=== PATIENT | male | born 1975 | race Two or more races ===

== ENCOUNTER 2019-03-12 12:07 | Emergency (ER) | payer MEDICAID ==
[~2019-03-12] VITALS: Ht 170.2 cm; Wt 77.1 kg
--- NOTE | 2019-03-12 12:24 | NUR ---
ED Nurse Note: radiology notified of US order.
--- NOTE | 2019-03-12 12:31 | Emergency Room Report ---
History of Present Illness General Chief Complaint: Male Urogenital Problems Source: Patient Present Illness HPI Patient presents with complaints of increased discomfort to the right testicular area Patient reports that he has for a long time had somewhat larger size to the right testicle over the past several months he has felt increased swelling and discomfort Patient reports having a physical about one month ago Was recommended for ultrasound however has not had any procedures performed denies any dysuria frequency denies any chest pain or shortness of breath denies any vomiting or diarrhea Patient essentially active only with one partner denies any dysuria or frequency Allergies: Coded Allergies: No Known Allergies (Unverified , 03/12/19) Patient History Past Medical History: see triage record Pertinent Family History: none Reviewed Nursing Documentation: PMH: Agreed; PSxH: Agreed Nursing Documentation-PMH Past Medical History: No Stated History Review of Systems All Other Systems: negative except mentioned in HPI Physical Exam Vital Signs Date Time Temp Pulse Resp B/P (MAP) Pulse Ox O2 Delivery O2 Flow Rate FiO2 03/12/19 12:14 98.2 80 18 96 Room Air Sp02 EP Interpretation: reviewed, normal General Appearance: well appearing, no apparent distress Head: normocephalic, atraumatic Eyes: bilateral eye PERRL, bilateral eye EOMI ENT: hearing grossly normal, normal pharynx, TMs + canals normal, uvula midline Neck: full range of motion, supple Respiratory: lungs clear, no retraction Cardiovascular #1: regular rate, rhythm Gastrointestinal: non tender, soft Genitourinary: other - Right testicle is firm and enlarged, not tender to palpation left testicle is freely mobile, patient is circumcised Musculoskeletal: normal inspection Neurologic: alert, oriented x3, responsive Skin: other - As above Lymphatic: no adenopathy Medical Decision Making Diagnostic Impression: Primary Impression: Hydrocele ER Course Multiple differentials and consideration including but not limited to epididymitis, hydrocele torsion, cancer Ultrasound reveals evidence of right-sided hydrocele I discussed with the patient that there are multiple differentials can lead to this diagnosis patient still requires close follow-up with urology As differentials such as infection and cancer and also lead to hydrocele Patient is understanding of this And will follow closely , CT/MRI/US Diagnostic Results CT/MRI/US Diagnostic Results : Impression testicular ultrasound: right-sided hydrocele good flow bilaterally Last Vital Signs Date Time Temp Pulse Resp B/P (MAP) Pulse Ox O2 Delivery O2 Flow Rate FiO2 03/12/19 12:14 98.2 80 18 96 Room Air Status: improved Disposition: HOME, SELF-CARE Condition: Improved Scripts Ibuprofen* (MOTRIN*) 600 Mg Tablet 600 MG ORAL Q8H PRN for For Pain, #20 TAB 0 Refills Prov: Gilma Ko DO 03/12/19 Doxycycline Monohydrate* (DOXYCYCLINE MONOHYDRATE*) 100 Mg Capsule 100 MG ORAL Q12H, #10 CAP 0 Refills Prov: Gilma Ko DO 03/12/19 Additional Instructions: Patient is provided with the discharge instructions notified to follow up with primary doctor in the next 2-3 days otherwise return to the er with any worsening symptoms. Please note that this report is being documented using DIIME technology. This can lead to erroneous entry secondary to incorrect interpretation by the dictating instrument. Gilma Ko DO March 12, 2019 12:31
--- NOTE | 2019-03-12 12:46 | NUR ---
ED Nurse Note: Patient presents to ER due to increased swelling and pain over the scortum for the past 3 days. Patient has had swelling over the scortum since Sep, 2018. Reports no fever or chills. U/S tech at bedside. Patient voided x 1. Yellow urine noted. No facial grimacing or guarding noted.
[2019-03-12 13:20] VITALS: BP 114/75
[2019-03-12] MEDS ORDERED: IBUPROFEN600 MG ORAL (13:25)
[2019-03-12] MEDS ORDERED: DOXYCYCLINE MO100 MG ORAL (13:25)
[2019-03-12] MEDS ORDERED: Lidocaine 1% MPF 10mg/ml 5ml INJ ONE (13:30)
[2019-03-12] MEDS ORDERED: Azithromycin 250mg tab ORAL ONE (13:30)
--- NOTE | 2019-03-12 13:31 | Diagnostic Imaging Report ---
EXAM: US Scrotum CLINICAL HISTORY: PAIN TECHNIQUE: Real-time ultrasound of the scrotum with color Doppler and image documentation. COMPARISON: No relevant prior studies available. FINDINGS: Right testicle: Right testicle measures 4.7 x 3.0 x 2.8 cm. Patent Doppler flow. No visible masses or microcalcifications. Incidental note of appendix testis bilaterally. Left testicle: Hyperemic left testicle and epididymis relative to the right. Left testicle measures 4.8 x 3.4 x 2.4 cm. Patent Doppler flow. No visible masses or microcalcifications. Epididymides: 2.1 x 1.6 x 1.3 cm right epididymal head cyst. Scrotum: Large right and mild left sided hydroceles. Small bilateral varicoceles. IMPRESSION: 1. Findings suggesting suggest a left-sided epididymoorchitis, with a hyperemic left testicle and epididymis relative to the right. 2. Large right and mild left sided hydroceles. 3. Small bilateral varicoceles. 4. 2.1 x 1.6 x 1.3 cm right epididymal head cyst.
[2019-03-12 13:45] VITALS: BP 122/81
--- NOTE | 2019-03-12 13:45 | NUR ---
ER DISCHARGE NOTE: Patient is cleared to be discharged per ERMD, pt is aox4, on room air, with stable vital signs. pt was given dc and prescription instructions, pt was able to verbalize understanding, pt id bandremoved. pt is able to ambulate with steady gait. pt took all belongings. VSS
[2019-03-12 14:04] VITALS: BP 122/81
== END 2019-03-12 13:45 | disposition home or self-care (01) ==
LOC: EMR 12:32
DX: N43.3 Hydrocele, unspecified (principal)
CPT/HCPCS: 76870; 96372; 99284; J0696; Q0144